=== PATIENT | female | born 2000 | race Caucasian/White ===

== ENCOUNTER 2024-11-10 16:26 | Emergency (ER) | payer SELFPAY ==
[2024-11-10 16:30] VITALS: BP 121/96
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
== END 2024-11-10 17:51 | disposition home or self-care (01) ==
LOC: EMR 16:26
PROVIDERS: EMERGENCY PHYSICIAN Emergency Medicine; FAMILY PHYSICIAN Family Medicine
DX: S80.211A Abrasion, right knee, initial encounter (principal); V43.52XA Car driver injured in collision with other type car in traffic accident, initial encounter; Y92.410 Unspecified street and highway as the place of occurrence of the external cause
CPT/HCPCS: 99282

== ENCOUNTER 2024-12-03 14:43 | Emergency (ER) | payer BC, SELFPAY ==
[2024-12-03 14:45] VITALS: BP 123/80
[2024-12-03 15:12] LABS: % Basophils 0.3 % (0-2); % Eosinophils 1.1 % (0-6); % Immature Granulocytes 2.3 % (0-0.5); % Lymphocytes 24.6 % (20.5-51.1); % Monocytes 5.5 % (1.7-9.3); % Neutrophils 66.2 % (42.2-75.2); Absolute Eosinophils 0.1 10^3/uL (0-0.7); Absolute Immature Granulocytes 0.2 10^3/uL (0-0.05); Absolute Lymphocytes 2.2 10^3/uL (1.2-3.4); Absolute Monocytes 0.5 10^3/uL (0.1-0.6); Hematocrit 35.6 % (37.0-47.0); Hemoglobin 11.9 g/dL (12.0-16.0); Mean Corp Hgb Conc. 33.4 g/dL (33.0-37.0); Mean Corpuscular Hgb 28.7 pg (27.0-31.0); Mean Platelet Volume 9.5 fL (7.4-10.4); Nucleated Red Blood Cells % 0 %; Platelet Count 348 10^3/uL (130-400); Red Blood Cell Count 4.14 10^6/uL (4.20-5.40)
[2024-12-03 15:20] LABS: HCG, Serum Qualitative Screen Negative
[2024-12-03 15:25] LABS: ALT (SGPT) 23 U/L (0-35); AST (SGOT) 23 U/L (14-36); Albumin 3.9 g/dl (3.5-5.0); Alkaline Phosphatase 47 U/L (38-126); Blood Urea Nitrogen 13 mg/dl (7-17); Calcium 9.2 mg/dl (8.4-10.2); Carbon Dioxide 23 mmol/L (22-30); Chloride 109 mmol/L (98-107); Glucose 110 mg/dl (70-99); Potassium 4.1 mmol/L (3.5-5.1); Sodium 140 mmol/L (135-145); Total Bilirubin 0.4 mg/dl (0.2-1.3); Total Protein 6.7 g/dl (6.3-8.2); eGFR > 60.00
[2024-12-03 18:46] VITALS: BP 103/66; BMI 31.6
--- NOTE | 2024-12-03 19:06 | ED.GENMED ---
History of Present Illness
General
Chief Complaint: Vaginal Bleeding
Source: patient
Exam Limitations: none
Time Seen by Provider: 12/03/24 17:12
Nursing documentation reviewed up to this point in time: agreed with
History of Present Illness
History of Present Illness:
Patient is a healthy 24-year-old female, who presents to the emergency department with abnormal vaginal bleeding. Patient states that her last menstrual period lasted from 11/20 to 11/26. She then reports that she started bleeding again
yesterday, 12/02. She stated bleeding yesterday was heavier although seems to have slowed down today. She denies passing any clots. She states blood is bright red. This bleeding is not as heavy as her typical menstrual cycle. She also reports
mild vaginal pain and lower abdominal cramping. Patient denies any fever, lightheadedness/dizziness, shortness of breath.
Patient states she did have sexual intercourse prior to onset of bleeding yesterday.
Patient apparently restarted for combined OCP about 2 weeks ago. She follows with [place] [facility] [facility] in the [facility]. No history of STIs. No history of abnormal Pap smears.
Review of Systems
Review of Systems
Allergies reviewed?: Yes
All Other Systems: ROS reviewed and negative except as documented in HPI and ROS
Phy Exam
Physical Exam
Physical Exam:
Vitals: Mildly tachycardic on arrival although normalized by my assessment. Otherwise vital signs stable. Afebrile
General: Patient is well appearing, no acute distress
Skin: Warm and dry, no rashes or lesions
Head: Normocephalic, atraumatic
Eyes: Sclera nonicteric. EOMs intact. No nystagmus.
Throat: Protecting airway
Neck: Normal ROM, no cervical spine tenderness, no meningismus
Cardiac: Regular rate and rhythm, no murmurs.
Pulm: Normal respiratory effort, no wheezes, rales, rhonchi heard on exam
.
Abdomen: Abdomen soft and nontender
Pelvic:External genitalia normal appearing without lesions, ulcerations, or adenopathy. Some bright red bleeding in vaginal vault without any visualized ulcerations or lesions. Bleeding from cervical os without any other obvious abnormalities to
visual inspection. No cervical motion tenderness
Extremities: No evidence of cyanosis or edema
Neuro: AAOx3. Grossly intact.
Psychiatric: Normal affect.
Course
Orders/Labs/Results
Orders:
Orders
12/03/24 14:48
Test Result ONCE
12/03/24 15:01
Type+Screen Urgent
Complete Blood Count/With Diff Urgent
Comprehensive Metabolic Panel Urgent
HCG, Serum Qualitative Screen Urgent
Comment: Notify provider if positive test present
12/03/24 15:09
ABO2 Urgent
BBK Wristband Number:
Associate notified that ABO2 has been ordered: JYOTI
Date: 12/03/24
Time: 15:09
Soft Work Wrapper Layer And Examiner ID: [id number]
Abnormal Lab Results
12/03/24
15:01
RBC 4.14 L 10^6/uL
(4.20-5.40)
Hgb 11.9 L g/dL
(12.0-16.0)
Hct 35.6 L %
(37.0-47.0)
Abs Immat Gran (auto) 0.2 H 10^3/uL
(0-0.05)
Immature Gran % 2.3 H %
(0-0.5)
Chloride 109 H mmol/L
(98-107)
Glucose 110 H mg/dl
(70-99)
12/03/24 15:01
12/03/24 15:01
Vital Signs
Initial and Last Documented VS:
Initial Vital Signs
Temp Pulse Resp BP Pulse Ox
97.7 F 105 16 123/80 97
12/03/24 14:45 12/03/24 14:45 12/03/24 14:45 12/03/24 14:45 12/03/24 14:45
Last Documented Vital Signs
Temp Pulse Resp BP Pulse Ox
97.7 F 91 20 103/66 100
12/03/24 14:45 12/03/24 18:46 12/03/24 18:46 12/03/24 18:46 12/03/24 18:46
MDM/Problems Addressed
Differential Diagnosis Includes:
Not limited to: Abnormal uterine bleeding, medication side effect, endometriosis, ectopic , etc.
MDM/Problems Addressed:
24-year-old female with abnormal uterine bleeding x 2 days with mild abdominal cramping. No fevers, lightheadedness, shortness of breath. Patient did recently restart her combined OCP. Last menstrual period from 11/20 to 11/26. This bleeding is
actually less than her typical menstrual cycle. Patient has stable vital signs per my assessment. Patient is in absolutely distress and is very well-appearing. Abdomen is soft and nontender throughout. Pelvic exam reveals some mild bleeding from
cervical os with small amount of pooled blood in vaginal vault. No significant bleeding on exam. No obvious lacerations, ulcerations. No cervical motion tenderness. Labs initiated in triage and reviewed. Patient has hemoglobin of 11.9.
Chemistry unremarkable. test is negative.
Ultimately�suspect likely breakthrough bleeding from recently initiating OCP. Low suspicion for acute emergent process today. Patient remains hemodynamically stable and very well-appearing. At this point�feel stable for discharge home with close
[employer] follow-up. She will contact for appointment tomorrow. Very strict return precaution discussed. Advised to continue OCP as directed.
Chronic conditions affecting care:
Endometriosis
Acute Exacerbation and/or Progression of Chronic Illness:
N/A
*Pulse Oximetry
Patient hypoxic: no
*EKG
Interpreted by ED Provider?: NA
*Loading Unit Operator Seating Interpretation
Rate: Loading Unit Operator Seating- N/A
*Critical Care Note
Total Time (30-74mins, 75-104mins- exclusive of procedures): Not Applicable
ED Attending Note
-
Portions of this chart may have been created with voice recognition software.� Occasional wrong word or��sound alike� substitutions may have occurred due to the inherent limitations of voice recognition software.
Discharge Plan
Departure
Patient Disposition: Home (Routine Discharge)
Date of Disposition: 12/03/24
Time of Disposition: 18:59
Patient with high blood pressure during this ER visit?: No
Condition: Good
Covid-19: Not Applicable
Discharge Problem:
Abnormal vaginal bleeding
Instructions: Heavy periods - ED discharge instructions
Activity Restrictions/Additional Instructions:
RETURN TO THE EMERGENCY DEPARTMENT WITH ANY PERSISTENT, HEAVY VAGINAL BLEEDING, FEVERS, SEVERE ABDOMINAL PAIN/CRAMPING, SHORTNESS OF BREATH, LIGHTHEADEDNESS/DIZZINESS, WORSENING OF CURRENT SYMPTOMS, OR ANY OTHER CONCERNS
- As discussed�you should continue to take your OCP daily.
- You can take Tylenol and/or Motrin as needed for pain. Stay well-hydrated.
- Follow-up with your SALES EFFECTIVENESS MANAGER for further evaluation/management to ensure that the bleeding is improving
Monitor your symptoms closely and return to the emergency department with any acute worsening/new symptoms or any other concerns
Interventions
Interventions:
*Risk Screen - Suicide Last Done: 12/03/24 14:45
*General Assessment Last Done: 12/03/24 14:45
*Neglect/Abuse Screening Last Done: 12/03/24 14:45
*ED COVID-19 Vaccine History Last Done: 12/03/24 14:45
Discharge Date and Time
Print Language: LUXEMBOURGISH
== END 2024-12-03 19:33 | disposition home or self-care (01) ==
LOC: EMR 14:43
PROVIDERS: Emergency Medicine; EMERGENCY PHYSICIAN Emergency Medicine; FAMILY PHYSICIAN Physician Assistant
DX: N93.9 Abnormal uterine and vaginal bleeding, unspecified (principal)
CPT/HCPCS: 99283; 80053; 84703; 85025; 86850; 86900; 86901

== ENCOUNTER 2025-04-06 14:49 | Emergency (ER) | payer BC, SELFPAY ==
[2025-04-06 14:52] VITALS: BP 135/83
--- NOTE | 2025-04-06 16:12 | ED.GENMED ---
History of Present Illness
General
Chief Complaint: Allergic Reaction
Time Seen by Provider: 04/06/25 15:46
History of Present Illness
History of Present Illness:
25-year-old female without significant past medical history presenting for concern of allergic reaction. Patient reports since last night, she started to get red bumps to her face and her back as well as her arms. She notes they are pruritic. She
does report that she started a new body wash 2 days ago, is unsure if that was the trigger. She also notes extension to her scalp, itching. Denies any prior history of allergic reaction. Denies any respiratory symptoms. Denies infectious
symptoms such as fever, sore throat, congestion. Denies any extension to her palms or soles. Denies any recent bug bites or sick contacts. She has not tried any medications for symptoms. Denies additional acute medical complaints
Phy Exam
Physical Exam
Physical Exam:
General: Well-appearing, no clinical signs of dehydration, nontoxic and in no acute distress
HEENT: protecting airway, no oropharyngeal swelling
Neck: appears supple
CV: Normal heart rate, regular rhythm
Resp: No accessory muscle use, no increased work of breathing, lungs clear to auscultation bilaterally
Abd: Soft and non-distended, no tenderness to palpation, normal bowel sounds
Extremities: No deformities, no swelling
Neuro: alert, no focal neurologic deficit
: deferred
Rectal: deferred
Psych: Normal affect
Skin: Intact, small erythematous scattered patches to the extremities, back, face
Course
Orders/Labs/Results
Orders:
Orders
04/06/25 16:07
Dexamethasone Pf [Decadron] 10 mg PO NOW STA
Vital Signs
Initial and Last Documented VS:
Initial Vital Signs
Temp Pulse Resp BP Pulse Ox
98.4 F 100 16 135/83 98
04/06/25 14:52 04/06/25 14:52 04/06/25 14:52 04/06/25 14:52 04/06/25 14:52
Last Documented Vital Signs
Temp Pulse Resp BP Pulse Ox
98.4 F 100 16 135/83 98
04/06/25 14:52 04/06/25 14:52 04/06/25 14:52 04/06/25 14:52 04/06/25 14:52
MDM/Problems Addressed
MDM/Problems Addressed:
25-year-old female presenting to the emergency department for concern of allergic reaction. Vital signs on arrival are normal.
On exam patient is resting comfortably, no acute distress or discomfort. On skin exam, patient does have scattered erythematous patches which are described as pruritic. Do not appear to be truly urticarial, however suspect component of contact
dermatitis. Notes that they started after a new body wash. No concerning features of anaphylaxis, no present respiratory symptoms, no oropharyngeal swelling, no airway compromise, no GI symptoms. No concern for infection, afebrile, no
distribution to the hands or soles, no URI symptoms. Will treat patient with Decadron and advised Benadryl as needed for itching. Otherwise feel stable for discharge. Advise follow-up for allergy testing. Return precautions discussed
*Pulse Oximetry
SaO2: 98
Oxygen Mode of Delivery: Room air
Patient hypoxic: no
*Critical Care Note
Total Time (30-74mins, 75-104mins- exclusive of procedures): Not Applicable
ED Attending Note
-
Portions of this chart may have been created with voice recognition software.� Occasional wrong word or��sound alike� substitutions may have occurred due to the inherent limitations of voice recognition software.
Discharge Plan
Departure
Patient Disposition: Home (Routine Discharge)
Date of Disposition: 04/06/25
Time of Disposition: 16:16
Patient with high blood pressure during this ER visit?: No
Condition: Good
Discharge Problem:
Contact dermatitis
Instructions: Contact dermatitis
Prescriptions:
New
prednisone 20 mg tablet
40 mg PO DAILY 4 Days Qty: 8 0RF
Referrals:
France Aguilar PA [Family Provider]
Activity Restrictions/Additional Instructions:
You were seen in the emergency department for skin rash
You were suspected to have a contact dermatitis or allergic reaction. You were prescribed steroids.
Please follow-up closely with your primary care physician.
Return to the emergency department for any worsening of your symptoms, or any development of chest pain, difficulty breathing, abdominal pain with persistent vomiting and inability to tolerate food or liquid by mouth (concern for dehydration),
weakness, headache or confusion, fever greater than 100.4, or any additional symptoms that are concerning to you.
Thank you for choosing [facility].
Interventions
Interventions:
*Risk Screen - Suicide Last Done: 04/06/25 14:52
*Neglect/Abuse Screening Last Done: 04/06/25 14:52
Discharge Date and Time
Print Language: SLOVENIAN
[2025-04-06] MEDS: DECADRON 10 MG PO (16:16)
== END 2025-04-06 17:10 | disposition home or self-care (01) ==
LOC: EMR 14:49
PROVIDERS: EMERGENCY PHYSICIAN Student in an Organized Health Care Education/Training Program; FAMILY PHYSICIAN Physician Assistant
DX: L25.9 Unspecified contact dermatitis, unspecified cause (principal)
CPT/HCPCS: 99283